=== PATIENT | female | born 1980 | race Caucasian/White ===

== ENCOUNTER 2023-05-05 10:07 | Emergency (ER) | payer OTHER ==
[2023-05-05 10:19] VITALS: BP 128/80; PULSE 53; RESP 16; TEMP 98.6; BMI 23.4
[2023-05-05] MEDS ORDERED: ACETAMINOPHEN 500 MG TABLET (FP) PO ONE (11:19)
[2023-05-05] MEDS ORDERED: ACETAMINOPHEN 500 MG TABLET (FP) ONE (11:26)
== END 2023-05-05 14:53 | disposition home or self-care (01) ==
LOC: JERFT 10:07
DX: M54.2 Cervicalgia (principal); M54.9 Dorsalgia, unspecified; S13.4XXA Sprain of ligaments of cervical spine, initial encounter; V43.91XA Unspecified car occupant injured in collision with sport utility vehicle in traffic accident, initial encounter
CPT/HCPCS: 72125-TC; 99284-25